=== PATIENT | female | born 1995 | race Caucasian/White ===

== ENCOUNTER 2017-03-18 22:27 | Emergency (ER) | payer BC ==
[~2017-03-18] VITALS: Ht 162.6 cm; Wt 47.3 kg
[~2017-03-18 22:27] MED LIST: FLEXERIL10 MG PO; LORTAB 5/500 501 TAB PO; NAPROSYN500 MG PO; SPRINTEC 35 MCG1 TAB PO
[2017-03-18 22:29] VITALS: TEMP 97.9
[2017-03-18] MEDS ORDERED: LEXAPRO 10MG10 MG PO (22:33)
[2017-03-18 23:41] LABS: BASO % 0.3 % (0.0-2.0); EOS # 0.3 (0.0-0.7); EOS % 2.6 % (0-4.0); GRAN # 8.3 (1.4-6.5); GRAN % 70.9 % (42.2-75.2); HEMATOCRIT 38.5 % (37.0-47.0); LYMPH % 17.2 % (20.0-51.0); MEAN CELL VOLUME 86 fl (80.0-100.0); MEAN CORPUSCULAR HEMOGLOBIN 29 pg (27.0-31.0); MEAN CORPUSCULAR HGB CONC 34 g/dl (33.0-37.0); MEAN PLATELET VOLUME 9.9 fl (7.4-10.4); MONO % 8.7 % (1.7-9.3); PLATELET COUNT 340 K/mm3 (130-400); RED BLOOD COUNT 4.46 M/mm3 (4.10-5.30); WHITE BLOOD COUNT 11.7 K/mm3 (4.8-10.8)
[2017-03-18 23:53] LABS: PH 5 (5-8); SQUAMOUS EPITHELIAL 0-2 /hpf; URINE APPEARANCE Hazy; URINE BACTERIA None Seen /hpf; URINE BILIRUBIN Negative (NEGATIVE); URINE BLOOD 2+ (NEGATIVE); URINE COLOR Yellow; URINE GLUCOSE Negative (NEGATIVE); URINE KETONE Trace (NEGATIVE); URINE RBC 0-2 /hpf; URINE UROBILINOGEN Negative (NEGATIVE)
[2017-03-19 00:04] LABS: ADJUSTED CALCIUM 8.8 mg/dL (8.4-10.2); ALBUMIN 4.5 gm/dL (3.5-5.0); BILIRUBIN,TOTAL 0.6 mg/dL (0.0-1.0); C-REACTIVE PROTEIN 2.4 mg/dL (0.0-0.9); CALCIUM 9.2 mg/dL (8.4-10.2); CREATININE, serum 0.74 mg/dL (0.52-1.25); POTASSIUM 3.8 mmol/L (3.4-5.0); TOTAL PROTEIN 7.7 gm/dL (6.4-8.2)
[2017-03-19 01:12] VITALS: BP 116/80; PULSE 72
== END 2017-03-19 01:14 | disposition home or self-care (01) ==
LOC: COL.ER 22:27
PROVIDERS: Emergency Medicine
DX: R10.31 Right lower quadrant pain (principal); R11.10 Vomiting, unspecified; R19.7 Diarrhea, unspecified
CPT/HCPCS: J2405; J7030; Q9967

== ENCOUNTER → 2017-03-22 | Outpatient (CLI) | payer BC ==
[~2017-03-22] MED LIST changes: +LEXAPRO 10MG10 MG PO
== END ==
LOC: COL.RAD
DX: R11.2 Nausea with vomiting, unspecified (principal); R19.7 Diarrhea, unspecified; R19.6 Halitosis; R15.2 Fecal urgency
CPT/HCPCS: A9541

== ENCOUNTER → 2017-03-31 | Outpatient (CLI) | payer BC | LOC: COL.RAD 08:08 | DX: R11.2 Nausea with vomiting, unspecified (principal); R19.7 Diarrhea, unspecified; R19.6 Halitosis; R15.2 Fecal urgency | CPT/HCPCS: A9541 ==

== ENCOUNTER 2017-11-27 22:43 | Emergency (ER) | payer BC ==
[~2017-11-27] VITALS: Ht 162.6 cm; Wt 50.0 kg
[~2017-11-27 22:43] MED LIST changes: -LEXAPRO 10MG10 MG PO; +LEXAPRO20 MG PO
[2017-11-27 22:46] VITALS: TEMP 100.3
[2017-11-27] MEDS ORDERED: DEPO-PROVE150 MG/1 M (22:50)
[2017-11-27 23:23] LABS: COLLECTION METHOD CLEAN CATCH
[2017-11-27 23:24] LABS: BASO % 0.4 % (0.0-2.0); EOS % 0.3 % (0-4.0); GRAN # 6.4 (1.4-6.5); GRAN % 60.7 % (42.2-75.2); HEMATOCRIT 39.2 % (37.0-47.0); HEMOGLOBIN 13.1 g/dl (12.5-16.0); LYMPH # 2.6 (1.2-3.4); LYMPH % 24.4 % (20.0-51.0); MEAN CELL VOLUME 83 fl (80.0-100.0); MEAN CORPUSCULAR HEMOGLOBIN 28 pg (27.0-31.0); MEAN CORPUSCULAR HGB CONC 33 g/dl (33.0-37.0); MEAN PLATELET VOLUME 9.5 fl (7.4-10.4); MONO # 1.5 (0.1-0.6); MONO % 13.9 % (1.7-9.3); PLATELET COUNT 325 K/mm3 (130-400); RED BLOOD COUNT 4.71 M/mm3 (4.10-5.30); REDCELL DISTRIBUTION WIDTH-CV 12.1 % (11.5-14.5)
[2017-11-27 23:36] LABS: ALBUMIN 4.4 gm/dL (3.5-5.0); BILIRUBIN,TOTAL 0.5 mg/dL (0.0-1.0); C-REACTIVE PROTEIN 6.4 mg/dL (0.0-0.9); CALCIUM 9.3 mg/dL (8.4-10.2); CREATININE, serum 0.75 mg/dL (0.52-1.25); POTASSIUM 3.8 mmol/L (3.4-5.0); TOTAL PROTEIN 7.6 gm/dL (6.4-8.2)
[2017-11-27 23:47] LABS: MUCOUS Present /lpf; PH 5 (5-8); SQUAMOUS EPITHELIAL 0-2 /hpf; URINE APPEARANCE Hazy; URINE BACTERIA Rare /hpf; URINE BILIRUBIN Negative (NEGATIVE); URINE BLOOD 2+ (NEGATIVE); URINE COLOR Yellow; URINE GLUCOSE Negative (NEGATIVE); URINE KETONE Negative (NEGATIVE); URINE LEUKOCYTE ESTERASE Negative (NEGATIVE); URINE NITRATE Negative (NEGATIVE); URINE PROTEIN(semi-quant) 1+ (NEGATIVE); URINE UROBILINOGEN Negative (NEGATIVE)
[2017-11-28] LABS: INFLUENZA A NEGATIVE; INFLUENZA B NEGATIVE
[2017-11-28] MEDS ORDERED: AMOXICILLIN 8751 TAB PO (01:20)
[2017-11-28] MEDS ORDERED: PREDNISONE20 MG PO (01:20)
[2017-11-28 02:00] VITALS: BP 108/65; PULSE 86
== END 2017-11-28 02:00 | disposition home or self-care (01) ==
LOC: COL.ER 22:43
PROVIDERS: Emergency Medicine
DX: J40 Bronchitis, not specified as acute or chronic (principal); R10.31 Right lower quadrant pain
CPT/HCPCS: J7030; J7512; Q9967

== ENCOUNTER → 2018-09-03 | Outpatient (REF) ==
[~2018-09-03] MED LIST changes: +AMOXICILLIN 8751 TAB PO; +DEPO-PROVE150 MG/1 M; +PREDNISONE20 MG PO
== END ==
LOC: ZLAB.WCH 11:03
DX: Z01.89 Encounter for other specified special examinations (principal)

== ENCOUNTER 2019-07-02 21:55 | Emergency (ER) | payer BC ==
[~2019-07-02] VITALS: Ht 162.6 cm; Wt 52.3 kg
[2019-07-02 22:03] VITALS: BP 146/88; TEMP 98.5
[2019-07-02 22:54] LABS: COLLECTION METHOD CLEAN CATCH
[2019-07-02 23:00] LABS: MUCOUS Present /lpf; PH 5 (5-8); SQUAMOUS EPITHELIAL 0-2 /hpf; URINE APPEARANCE Clear; URINE BACTERIA None Seen /hpf; URINE BILIRUBIN Negative (NEGATIVE); URINE BLOOD 1+ (NEGATIVE); URINE COLOR Yellow; URINE GLUCOSE Negative (NEGATIVE); URINE KETONE Negative (NEGATIVE); URINE LEUKOCYTE ESTERASE Negative (NEGATIVE); URINE NITRATE Negative (NEGATIVE); URINE PROTEIN(semi-quant) Negative (NEGATIVE); URINE RBC 0-2 /hpf; URINE UROBILINOGEN Negative (NEGATIVE)
[2019-07-03 00:11] LABS: BASO # 0.1 (0.0-0.2); BASO % 0.9 % (0.0-2.0); EOS # 0.2 (0.0-0.7); GRAN # 4.1 (1.4-6.5); GRAN % 53.4 % (42.2-75.2); HEMATOCRIT 37.8 % (37.0-47.0); HEMOGLOBIN 12.5 g/dl (12.5-16.0); LYMPH # 2.7 (1.2-3.4); LYMPH % 35.7 % (20.0-51.0); MEAN CELL VOLUME 85 fl (80.0-100.0); MEAN CORPUSCULAR HEMOGLOBIN 28 pg (27.0-31.0); MEAN CORPUSCULAR HGB CONC 33 g/dl (33.0-37.0); MEAN PLATELET VOLUME 9.9 fl (7.4-10.4); MONO # 0.6 (0.1-0.6); MONO % 7.7 % (1.7-9.3); PLATELET COUNT 339 K/mm3 (130-400); RED BLOOD COUNT 4.46 M/mm3 (4.10-5.30)
[2019-07-03 00:33] LABS: ALANINE AMINOTRANSFERASE 15 U/L (9-52); ALBUMIN 4.6 gm/dL (3.5-5.0); ALKALINE PHOSPHATASE 64 U/L (50-136); ANION GAP 11 mmol/L (7-16); AST,SGOT 29 U/L (15-37); BILIRUBIN,TOTAL 0.3 mg/dL (0.0-1.0); BLOOD UREA NITROGEN 14 mg/dL (7-17); C-REACTIVE PROTEIN < 0.5 mg/dL (0.0-0.9); CALCIUM 9.3 mg/dL (8.4-10.2); CARBON DIOXIDE 23 mmol/L (22-30); CHLORIDE 105 mmol/L (98-107); CREATININE, serum 0.67 (0.52-1.25); GLUCOSE 89 mg/dL (74-106); POTASSIUM 3.4 mmol/L (3.4-5.0); SODIUM 140 mmol/L (137-145); TOTAL PROTEIN 7.6 gm/dL (6.4-8.2)
[2019-07-03 00:43] LABS: TRICYCLIC ANTIDEPRESS URINE NEGATIVE
[2019-07-03 00:57] LABS: HIV 1/2 Antibodies Non-Reactive; HIV-1p24 Antigen Non-Reactive
[2019-07-03 02:00] VITALS: PULSE 73
== END 2019-07-03 02:00 | disposition home or self-care (01) ==
LOC: COL.ER 21:55
PROVIDERS: Nurse Practitioner
DX: R10.2 Pelvic and perineal pain (principal)
CPT/HCPCS: J7030

== ENCOUNTER 2019-09-24 08:54 | Emergency (ER) | payer BC ==
[~2019-09-24] VITALS: Ht 162.6 cm; Wt 54.5 kg
[2019-09-24 08:59] VITALS: BP 127/79; TEMP 97.9
[2019-09-24] MEDS ORDERED: PROAIR HFA0.09 MG/AC IH (10:25)
[2019-09-24] MEDS ORDERED: PREDNISONE20 MG PO (10:25)
[2019-09-24 10:34] VITALS: PULSE 86
== END 2019-09-24 10:34 | disposition home or self-care (01) ==
LOC: COL.ER 08:54
DX: J40 Bronchitis, not specified as acute or chronic (principal)

== ENCOUNTER → 2020-09-20 | Outpatient (CLI) | payer BC ==
[~2020-09-20] MED LIST changes: +PROAIR HFA0.09 MG/AC IH
== END ==
LOC: MC.RAD 10:00
DX: N63.10 Unspecified lump in the right breast, unspecified quadrant (principal); N63.20 Unspecified lump in the left breast, unspecified quadrant

== ENCOUNTER 2021-02-22 18:32 | Emergency (ER) | payer BC ==
[~2021-02-22] VITALS: Ht 162.6 cm; Wt 56.4 kg
[2021-02-22 19:11] LABS: BASO # 0.2 (0.0-0.2); EOS % 0.1 % (0-4.0); GRAN % 38.3 % (42.2-75.2); HEMATOCRIT 42.1 % (37.0-47.0); HEMOGLOBIN 13.9 g/dl (12.5-16.0); LYMPH # 8.4 (1.2-3.4); LYMPH % 53.1 % (20.0-51.0); MEAN CELL VOLUME 87 fl (80.0-100.0); MEAN CORPUSCULAR HEMOGLOBIN 29 pg (27.0-31.0); MEAN CORPUSCULAR HGB CONC 33 g/dl (33.0-37.0); MEAN PLATELET VOLUME 9.8 fl (7.4-10.4); MONO # 1.1 (0.1-0.6); MONO % 7.2 % (1.7-9.3); PLATELET COUNT 289 K/mm3 (130-400); RED BLOOD COUNT 4.86 M/mm3 (4.10-5.30); REDCELL DISTRIBUTION WIDTH-CV 12.8 % (11.5-14.5)
[2021-02-22 19:25] LABS: ALBUMIN 4.7 gm/dL (3.5-5.0); BILIRUBIN,TOTAL 0.3 mg/dL (0.0-1.0); C-REACTIVE PROTEIN 4.4 mg/dL (0.0-0.9); CALCIUM 9.2 mg/dL (8.4-10.2); CREATININE, serum 0.65 (0.52-1.25); POTASSIUM 3.7 mmol/L (3.4-5.0); TOTAL PROTEIN 9.2 gm/dL (6.4-8.2)
[2021-02-22 19:27] LABS: MONOSCREEN POSITIVE
[2021-02-22 19:54] LABS: HIV 1/2 Antibodies Non-Reactive; HIV-1p24 Antigen Non-Reactive
[2021-02-22 20:05] LABS: BAND 1 % (0-10); BASOPHIL 2 % (0-2); LYMPHOCYTE 49 % (20.0-51.0); NEUTROPHILS 38 % (42.0-75.2); PLATELET ESTIMATE NORMAL (NORMAL)
[2021-02-22 21:15] VITALS: BP 130/87; PULSE 101; TEMP 99
== END 2021-02-22 21:17 | disposition home or self-care (01) ==
LOC: COL.ER 18:32
PROVIDERS: Physician Assistant
DX: B27.90 Infectious mononucleosis, unspecified without complication (principal); R59.0 Localized enlarged lymph nodes; R00.0 Tachycardia, unspecified; Z20.822 Contact with and (suspected) exposure to COVID-19
CPT/HCPCS: J1100; J1885; J2405; J7030

== ENCOUNTER 2021-02-24 01:20 | Observation (INO) | payer BC ==
[~2021-02-24] VITALS: Ht 162.6 cm; Wt 59.1 kg
[2021-02-24 01:45] LABS: MEAN CELL VOLUME 87 fl (80.0-100.0); MEAN CORPUSCULAR HGB CONC 33 g/dl (33.0-37.0); MEAN PLATELET VOLUME 10.2 fl (7.4-10.4); PLATELET COUNT 258 K/mm3 (130-400); REDCELL DISTRIBUTION WIDTH-CV 12.9 % (11.5-14.5)
[2021-02-24 01:51] LABS: HEMATOCRIT 35.6 % (37.0-47.0); HEMOGLOBIN 11.7 g/dl (12.5-16.0); MEAN CORPUSCULAR HEMOGLOBIN 29 pg (27.0-31.0)
[2021-02-24 01:56] LABS: ALBUMIN 3.8 gm/dL (3.5-5.0); BILIRUBIN,TOTAL 0.1 mg/dL (0.0-1.0); CALCIUM 8.7 mg/dL (8.4-10.2); CREATININE, serum 0.57 (0.52-1.25); POTASSIUM 3.3 mmol/L (3.4-5.0); TOTAL PROTEIN 7.1 gm/dL (6.4-8.2)
[2021-02-24 02:45] LABS: BAND 5 % (0-10); LYMPHOCYTE 54 % (20.0-51.0); MYELOCYTE 2 % (0-0); NEUTROPHILS 26 % (42.0-75.2); PLATELET ESTIMATE NORMAL (NORMAL)
--- NOTE | 2021-02-24 03:15 | NUR ---
ARRIVED VIA W/C FROM ED TO ROOM 330. PT IS ALERT AND ORIENTED X4. REPORTS SORE NECK AND UPPER BACK. HAS SL TO LEFT AC. REPORTS DIFFICULTY SWALLOWING, BUT SOME IMPROVED FROM MEDS RECEIVED IN THE ED.
[2021-02-24] MEDS ORDERED: VALTREX 50500 MG/TAB PO (03:30)
[2021-02-24 04:04] VITALS: BP 116/70; PULSE 104; TEMP 98.6
--- NOTE | 2021-02-24 04:49 | NUR ---
MEDICATED WITH TORADOL 30MG IV FOR NECK AND BACK PAIN. IV FLUIDS INFUSING WITHOUT PROBLEM TO LEFT AC SITE, FIRST DOSE OF REPLACEMENT POTASSIUM INFUSING.
[2021-02-24 07:42] LABS: HEMOGLOBIN 11.5 g/dl (12.5-16.0); MEAN CELL VOLUME 89 fl (80.0-100.0); MEAN CORPUSCULAR HEMOGLOBIN 28 pg (27.0-31.0); MEAN CORPUSCULAR HGB CONC 32 g/dl (33.0-37.0); PLATELET COUNT 276 K/mm3 (130-400); RED BLOOD COUNT 4.09 M/mm3 (4.10-5.30)
[2021-02-24 07:43] LABS: HEMATOCRIT 36.4 % (37.0-47.0)
[2021-02-24 07:49] VITALS: BP 106/53; PULSE 91; TEMP 98.7
[2021-02-24 08:00] LABS: CALCIUM 8.5 mg/dL (8.4-10.2); CREATININE, serum 0.57 (0.52-1.25); POTASSIUM 4.2 mmol/L (3.4-5.0)
--- NOTE | 2021-02-24 09:05 | NUR ---
Patient resting in bed. Reports not being able to sleep. Her throat is sore. Ivf per orders. K+ replacement per orders. Zofran for nausea. Tolerating clears. Up to the bathroom & voided. Report its been a few days since she has a BM. Lalo charles.
[2021-02-24 09:07] LABS: BAND 4 % (0-10); EOSINOPHIL 1 % (0-4); LYMPHOCYTE 38 % (20.0-51.0); NEUTROPHILS 50 % (42.0-75.2); PLATELET ESTIMATE NORMAL (NORMAL)
--- NOTE | 2021-02-24 10:50 | NUR ---
rounded. Plan of care reviewed. Patient's supportive mother at bedside. Ibprofen as ordered. Reviewed with patietn. She is tolerating clear liquids at this time
[2021-02-24 12:01] VITALS: BP 109/66; PULSE 88; TEMP 99.5
--- NOTE | 2021-02-24 13:01 | NUR ---
First visit from the casing in line setter. No needs right now.
[2021-02-24] MEDS ORDERED: ADVIL200 MG PO (13:51)
--- NOTE | 2021-02-24 14:45 | NUR ---
Patient ready to Discharge. made aware & orders obtained. Patient Iv DC. We reviewed soft diet & Importance of staying hydrated. Stressed the importance of rest and not overdoing it or heavy activity. PCP appt made. Patient mother taking her home & taking her to get prescription. We discussed using motrin for pain. Patient wheeled out with all belongings
== END 2021-02-24 15:45 | disposition home health service (06) ==
LOC: COL.ER 01:20 → SURG 02:36
PROVIDERS: Emergency Medicine; Student in an Organized Health Care Education/Training Program; ADMIT Family Medicine
DX: B27.90 Infectious mononucleosis, unspecified without complication (principal); R25.2 Cramp and spasm; R74.01 Elevation of levels of liver transaminase levels; R00.0 Tachycardia, unspecified; E87.6 Hypokalemia; B00.9 Herpesviral infection, unspecified; Z79.899 Other long term (current) drug therapy
CPT/HCPCS: G0378; J1100; J1885; J2405; J3480; J7030; J7120

== ENCOUNTER 2021-11-23 14:12 | Emergency (ER) | payer BC ==
[~2021-11-23] VITALS: Ht 162.6 cm; Wt 52.3 kg
[~2021-11-23 14:12] MED LIST changes: +ADVIL200 MG PO; +VALTREX 50500 MG/TAB PO
[2021-11-23 15:27] VITALS: TEMP 98.8
[2021-11-23 15:52] LABS: COLLECTION METHOD CLEAN CATCH
[2021-11-23 16:04] LABS: PH 7 (5-8); SQUAMOUS EPITHELIAL None Seen /hpf (0-10); URINE APPEARANCE Clear (CLEAR/HAZY); URINE BACTERIA None Seen /hpf (NONE SEEN); URINE BILIRUBIN Negative (NEGATIVE); URINE BLOOD Negative (NEGATIVE); URINE COLOR Straw (YELLOW); URINE GLUCOSE Negative (NEGATIVE); URINE KETONE Negative (NEGATIVE); URINE LEUKOCYTE ESTERASE Negative (NEGATIVE); URINE NITRATE Negative (NEGATIVE); URINE PROTEIN(semi-quant) Negative (NEGATIVE); URINE RBC None Seen /hpf (0-2); URINE UROBILINOGEN Negative (NEGATIVE)
[2021-11-23 16:32] VITALS: BP 101/58; PULSE 60
== END 2021-11-23 16:30 | disposition home or self-care (01) ==
LOC: COL.ER 14:12
PROVIDERS: Emergency Medicine
DX: S69.92XA Unspecified injury of left wrist, hand and finger(s), initial encounter (principal); R30.0 Dysuria; W00.0XXA Fall on same level due to ice and snow, initial encounter

== ENCOUNTER → 2022-06-20 | Outpatient (CLI) | payer BC ==
[~2022-06-20] VITALS: Ht 162.6 cm; Wt 59.1 kg
[~2022-06-20] MED LIST changes: +AMOXICILLIN875 MG; +PHENERGAN 25 TA25 MG
--- NOTE | 2022-06-20 19:00 | NUR ---
pt presents to L&D with complaint of right low back pain that is sharp, low abd pain, constant burning in vagina, the burning does not happen when she urinates but it is constant and feels like it is in her vagina. denies vag bleeding, leaking fluid or uc's. pt states this has been going on all week but the sharp back pain and vaginal buring has gotten worse today. SVE CLOSED/THICK/HIGH NO BLEEDING OR DISCHARGE NOTED.
[2022-06-20 19:15] VITALS: BP 116/70; PULSE 82; TEMP 98.2
[2022-06-20 19:25] LABS: COLLECTION METHOD CLEAN CATCH
[2022-06-20 19:53] LABS: SQUAMOUS EPITHELIAL 0-2 /hpf (0-10); URINE BACTERIA None Seen /hpf (NONE SEEN); URINE RBC 0-2 /hpf (0-2); URINE WBC 0-2 /hpf (0-2)
[2022-06-20 19:54] LABS: URINE APPEARANCE Clear (CLEAR/HAZY); URINE BLOOD Negative (NEGATIVE); URINE COLOR Colorless (YELLOW); URINE GLUCOSE Negative (NEGATIVE); URINE KETONE Negative (NEGATIVE); URINE NITRATE Negative (NEGATIVE); URINE PROTEIN(semi-quant) Negative (NEGATIVE); URINE UROBILINOGEN 0.2 E.U/dL (0.2-1.0)
--- NOTE | 2022-06-20 20:12 | NUR ---
PT GIVEN WRITTEN AND VERBAL DISCHARGE INSTRUCTIONS TO GET SOME MONOSTAT AT THE PHARMACY TO SELF TREAT AND TO CALL THE OFFICE ON WEDNESDAY FOR FOLLOW UP. PT VERBALIZED UNDERSTANDING. PT SIGNED DISCHARGE PAPERS AND LEFT THE UNIT AMB OUT WITH HER S.O.
== END ==
LOC: LDRO 18:38 → LDR 18:40
PROVIDERS: Obstetrics & Gynecology
DX: O26.892 Other specified pregnancy related conditions, second trimester (principal); R10.2 Pelvic and perineal pain; Z3A.27 27 weeks gestation of pregnancy

== ENCOUNTER 2022-07-17 06:52 | Outpatient (CLI) | payer BC ==
[~2022-07-17] VITALS: Ht 162.6 cm; Wt 60.9 kg
--- NOTE | 2022-07-17 07:05 | NUR ---
Pt arrived on unit ambulatory escorted by spouse and with concerns for possible ROM and contractions every 5-10 mins since 0400 this morning. Pt denies any vaginal bleeding and reports normal movement. EFM and toco monitors started. Vital signs WNL. SVE by this RN / with negative amniotrace x2. Information reviewed with Dr. Hopkins. See physician notification for details.
[2022-07-17 07:57] LABS: COLLECTION METHOD CLEAN CATCH
[2022-07-17 08:05] VITALS: BP 128/65; PULSE 89; TEMP 97.6
[2022-07-17 08:08] LABS: MUCOUS Present (NOT PRESENT); SQUAMOUS EPITHELIAL 0-2 /hpf (0-10); URINE BACTERIA Rare /hpf (NONE SEEN); URINE RBC None Seen /hpf (0-2); URINE WBC 0-2 /hpf (0-2)
[2022-07-17 08:09] LABS: PH 7 (5-8); URINE APPEARANCE Clear (CLEAR/HAZY); URINE COLOR Yellow (YELLOW); URINE GLUCOSE Negative (NEGATIVE); URINE KETONE Negative (NEGATIVE); URINE PROTEIN(semi-quant) Negative (NEGATIVE)
[2022-07-17 08:10] LABS: URINE BLOOD Negative (NEGATIVE); URINE NITRATE Negative (NEGATIVE); URINE UROBILINOGEN 0.2 (NEGATIVE)
--- NOTE | 2022-07-17 08:20 | NUR ---
Dr. Hopkins on the unit. FHR tracing and UA results reviewed. SVE by this RN with no change and pt reports feeling the contractions less frequent. Orders for discharge home received. Information reviewed with pt and . Both verbalized an understanding, agreed with the plan and states no questions or concerns at this time.
== END 2022-07-17 08:35 | disposition home or self-care (01) ==
LOC: LDRO 06:52
PROVIDERS: Obstetrics & Gynecology
DX: Z34.93 Encounter for supervision of normal pregnancy, unspecified, third trimester (principal); Z3A.31 31 weeks gestation of pregnancy